=== PATIENT | male | born 1960 | race Caucasian/White ===

== ENCOUNTER 2018-01-11 14:09 | Emergency (ER) | payer BC ==
[2018-01-11] MEDS ORDERED: SODIUM CHLORIDE 0.9% 1,000 ML IV STA (14:39)
--- NOTE | 2018-01-11 14:48 | ED ---
Syncope HPI - General Chief Complaint: Syncope Stated Complaint: near syncopal episode Time Seen by Provider: 01/11/18 14:25 Source: patient, family, EMS, RN notes reviewed Mode of arrival: EMS Limitations: no limitations - History of Present Illness Initial Comments: 57-year-old male presents emergency department for near syncopal episode. Patient states that he was watching the football game today states that he took a couple shots of alcohol and then took a couple hits of marijuana and states that he went to start eating some food and felt very lightheaded and dizzy. Patient states that there is a period time that he does not remember. Patient family states that his eyes seemed to roll back that he was responding but confused. Symptoms resolved as EMS arrived. Patient states he has no complaints denies chest pain, headache, dizziness, blurred vision, focal weakness, nausea, vomiting diarrhea, constipation, dysuria. Patient states she' s had exact same symptoms in the past when he smoked marijuana and also when he drank - Related Data Allergies Allergy/AdvReac Type Severity Reaction Status Date / Time No Known Allergies Allergy Verified 01/11/18 14:31 Review of Systems ROS Statement: Those systems with pertinent positive or pertinent negative responses have been documented in the HPI. ROS Other: All systems not noted in ROS Statement are negative. Past Medical History Past Medical History: Diabetes Mellitus Additional Past Medical History / Comment(s): high cholestrol, Fast heart beat History of Any Multi-Drug Resistant Organisms: None Reported Additional Past Surgical History / Comment(s): finger surgery Past Psychological History: No Psychological Hx Reported Smoking Status: Former smoker Past Alcohol Use History: Occasional Past Drug Use History: Marijuana General Exam Limitations: no limitations General appearance: alert, in no apparent distress Head exam: Present: atraumatic, normocephalic, normal inspection Eye exam: Present: normal appearance, PERRL, EOMI. Absent: scleral icterus, conjunctival injection, periorbital swelling ENT exam: Present: normal exam, normal oropharynx, mucous membranes moist, TM's normal bilaterally Neck exam: Present: normal inspection, full ROM. Absent: tenderness, meningismus, lymphadenopathy Respiratory exam: Present: normal lung sounds bilaterally. Absent: respiratory distress, wheezes, rales, rhonchi, stridor Cardiovascular Exam: Present: regular rate, normal rhythm, normal heart sounds. Absent: systolic murmur, diastolic murmur, rubs, gallop, clicks GI/Abdominal exam: Present: soft, normal bowel sounds. Absent: distended, tenderness, guarding, rebound, rigid Neurological exam: Present: alert, oriented X3, CN II-XII intact Skin exam: Present: warm, dry, intact, normal color. Absent: rash Course Vital Signs 01/11/18 01/11/18 01/11/18 14:20 14:21 14:24 Temperature 97.6 F Pulse Rate 65 Pulse Rate [ 68 [employer] ] Respiratory 16 Rate Blood Pressure 85/59 85/59 O2 Sat by Pulse 92 L 92 L Oximetry 01/11/18 01/11/18 01/11/18 14:30 14:40 14:50 Temperature Pulse Rate 64 64 67 Pulse Rate [ [employer] Sales Executive ] Respiratory 16 15 14 Rate Blood Pressure 85/59 91/69 88/68 O2 Sat by Pulse 92 L 92 L 91 L Oximetry 01/11/18 01/11/18 01/11/18 15:00 15:20 15:30 Temperature Pulse Rate 71 68 Pulse Rate [ [employer] Sales Executive ] Respiratory 16 18 Rate Blood Pressure 88/68 87/61 87/61 O2 Sat by Pulse 93 L 97 Oximetry 01/11/18 01/11/18 01/11/18 15:40 15:50 16:00 Temperature Pulse Rate 66 70 70 Pulse Rate [ [employer] Sales Executive ] Respiratory 17 17 17 Rate Blood Pressure 87/61 104/66 104/66 O2 Sat by Pulse 98 98 98 Oximetry 01/11/18 01/11/18 16:10 16:20 Temperature Pulse Rate 71 65 Pulse Rate [ [employer] Sales Executive ] Respiratory 16 15 Rate Blood Pressure 111/72 111/72 O2 Sat by Pulse 98 98 Oximetry - Reevaluation(s) Reevaluation #1: 01/11/18 16:52 Patient has remained asymptomatic in emergency department has had no complaints. Patient has normal vitals after a liter of fluids. Reevaluation #2: 01/11/18 16:52 Updated family and results and patient. Patient states that he has no symptoms. Patient will be discharged. EKG Findings - EKG Comments: EKG Findings:: EKG performed at 14:43 normal sinus rhythm with rate of 64 TN 188 QRS 82 QT/QTC 46/418 Medical Decision Making - Medical Decision Making 57-year-old male presents emergency department for syncopal episode after smoking marijuana and drinking. Patient had these symptoms symptoms in the past when these used before. Patient is advised not to use any marijuana or drink alcohol, Patient will be discharged return parameters discussed. - Lab Data Result diagrams: 01/11/18 14:39 01/11/18 14:39 Lab Results 01/11/18 01/11/18 01/11/18 Range/Units 14:39 14:39 14:39 WBC 7.5 (3.8-10.6) k/uL RBC 4.89 (4.30-5.90) m/uL Hgb 15.0 (13.0-17.5) gm/dL Hct 43.8 (39.0-53.0) % MCV 89.7 (80.0-100.0) fL MCH 30.7 (25.0-35.0) pg MCHC 34.3 (31.0-37.0) g/dL RDW 12.9 (11.5-15.5) % Plt Count 259 (150-450) k/uL Neutrophils % 65 % Lymphocytes % 22 % Monocytes % 4 % Eosinophils % 6 % Basophils % 1 % Neutrophils # 4.9 (1.3-7.7) k/uL Lymphocytes # 1.6 (1.0-4.8) k/uL Monocytes # 0.3 (0-1.0) k/uL Eosinophils # 0.5 (0-0.7) k/uL Basophils # 0.1 (0-0.2) k/uL PT (9.0-12.0) sec INR (<1.2) APTT (22.0-30.0) sec Sodium 139 (137-145) mmol/L Potassium 4.3 (3.5-5.1) mmol/L Chloride 104 (98-107) mmol/L Carbon Dioxide 23 (22-30) mmol/L Anion Gap 12 mmol/L BUN 14 (9-20) mg/dL Creatinine 1.12 (0.66-1.25) mg/dL Est GFR (CKD-EPI)AfAm 85 (>60 ml/min/1.73 sqM) Est GFR (CKD-EPI)NonAf 74 (>60 ml/min/1.73 sqM) Glucose 155 H (74-99) mg/dL POC Glucose (mg/dL) (75-99) mg/dL POC Glu [employer]er ID Calcium 8.7 (8.4-10.2) mg/dL Magnesium 1.9 (1.6-2.3) mg/dL Total Bilirubin 0.6 (0.2-1.3) mg/dL AST 62 H (17-59) U/L ALT 120 H (21-72) U/L Alkaline Phosphatase 44 (38-126) U/L Total Creatine Kinase 88 (55-170) U/L CK-MB (CK-2) 0.6 (0.0-2.4) ng/mL CK-MB (CK-2) Rel Index 0.7 Troponin I <0.012 (0.000-0.034) ng/mL Total Protein 6.7 (6.3-8.2) g/dL Albumin 3.8 (3.5-5.0) g/dL 01/11/18 01/11/18 Range/Units 14:39 14:48 WBC (3.8-10.6) k/uL RBC (4.30-5.90) m/uL Hgb (13.0-17.5) gm/dL Hct (39.0-53.0) % MCV (80.0-100.0) fL MCH (25.0-35.0) pg MCHC (31.0-37.0) g/dL RDW (11.5-15.5) % Plt Count (150-450) k/uL Neutrophils % % Lymphocytes % % Monocytes % % Eosinophils % % Basophils % % Neutrophils # (1.3-7.7) k/uL Lymphocytes # (1.0-4.8) k/uL Monocytes # (0-1.0) k/uL Eosinophils # (0-0.7) k/uL Basophils # (0-0.2) k/uL PT 10.4 (9.0-12.0) sec INR 1.1 (<1.2) APTT 21.2 L (22.0-30.0) sec Sodium (137-145) mmol/L Potassium (3.5-5.1) mmol/L Chloride (98-107) mmol/L Carbon Dioxide (22-30) mmol/L Anion Gap mmol/L BUN (9-20) mg/dL Creatinine (0.66-1.25) mg/dL Est GFR (CKD-EPI)AfAm (>60 ml/min/1.73 sqM) Est GFR (CKD-EPI)NonAf (>60 ml/min/1.73 sqM) Glucose (74-99) mg/dL POC Glucose (mg/dL) 137 H (75-99) mg/dL POC Glu [employer]er ID June Calcium (8.4-10.2) mg/dL Magnesium (1.6-2.3) mg/dL Total Bilirubin (0.2-1.3) mg/dL AST (17-59) U/L ALT (21-72) U/L Alkaline Phosphatase (38-126) U/L Total Creatine Kinase (55-170) U/L CK-MB (CK-2) (0.0-2.4) ng/mL CK-MB (CK-2) Rel Index Troponin I (0.000-0.034) ng/mL Total Protein (6.3-8.2) g/dL Albumin (3.5-5.0) g/dL Disposition Clinical Impression: Syncope Disposition: HOME SELF-CARE Condition: Stable Instructions: Syncope (ED) Additional Instructions: Please return to the Emergency Department if symptoms worsen or any other concerns. Is patient prescribed a controlled substance at d/c from ED?: No Referrals: Nonstaff,Physician [Primary Care Provider] - 1-2 days Time of Disposition: 16:54
[2018-01-11 14:49] LABS: Basophils # (A) 0.1 k/uL (0-0.2); Basophils % (A) 1 %; Eosinophils # (A) 0.5 k/uL (0-0.7); Eosinophils % (A) 6 %; HCT 43.8 % (39.0-53.0); Lymphocytes # (A) 1.6 k/uL (1.0-4.8); Lymphocytes % (A) 22 %; MCH 30.7 pg (25.0-35.0); MCHC 34.3 g/dL (31.0-37.0); MCV 89.7 fL (80.0-100.0); Mean Platelet Volume 7.4; Monocytes # (A) 0.3 k/uL (0-1.0); Monocytes % (A) 4 %; Neutrophils # (A) 4.9 k/uL (1.3-7.7); Neutrophils % (A) 65 %; Platelet Count 259 k/uL (150-450); RBC 4.89 m/uL (4.30-5.90); RDW 12.9 % (11.5-15.5); WBC 7.5 k/uL (3.8-10.6)
[2018-01-11 14:55] LABS: Glucose,Whole Blood 137 mg/dL (75-99)
[2018-01-11 15:00] LABS: Albumin 3.8 g/dL (3.5-5.0); Calcium 8.7 mg/dL (8.4-10.2); Magnesium 1.9 mg/dL (1.6-2.3); Potassium 4.3 mmol/L (3.5-5.1); Total Bilirubin 0.6 mg/dL (0.2-1.3); Total Protein 6.7 g/dL (6.3-8.2)
[2018-01-11 15:07] LABS: INR 1.1 (<1.2); Prothrombin Time 10.4 sec (9.0-12.0)
[2018-01-11 15:08] LABS: Creatine Kinase 88 U/L (55-170); Partial Thromboplastin Time 21.2 sec (22.0-30.0)
[2018-01-11 15:21] LABS: Creatine Kinase MB 0.6 ng/mL (0.0-2.4); Troponin I <0.012 ng/mL (0.000-0.034)
--- NOTE | 2018-01-11 15:47 | XR ---
EXAMINATION TYPE: XR chest 2V DATE OF EXAM: 01/11/2018 COMPARISON: None HISTORY: 57-year-old male with syncope TECHNIQUE: PA and lateral views FINDINGS: Heart normal size. Aorta within normal limits. Diffuse interstitial prominence and peribronchial cuff ing. Streaky atelectasis lower lungs. Eventration anterior right hemidiaphragm. No consolidation or p leural effusion. IMPRESSION: Peribronchial cuffing could reflect bronchitis or asthma.
[2018-01-11 17:13] VITALS: BP 119/81; PULSE 75; RESP 16; TEMP 98
== END 2018-01-11 17:12 | disposition home or self-care (01) ==
LOC: EC 14:09
DX: R55 Syncope and collapse (principal); R42 Dizziness and giddiness; F12.90 Cannabis use, unspecified, uncomplicated; E11.9 Type 2 diabetes mellitus without complications; Z87.891 Personal history of nicotine dependence
CPT/HCPCS: 36415; 71046; 80053; 82550; 82553; 83735; 84484; 85025; 85610; 85730; 93005; 96360; 99285